=== PATIENT | female | born 1940 | race Caucasian/White ===

== ENCOUNTER → 2017-10-01 | Outpatient (CLI) | payer MEDICARE | END | disposition home or self-care (01) | LOC: RAH 12:30 | PROVIDERS: ATTEND Internal Medicine | DX: I73.9 Peripheral vascular disease, unspecified (principal) | CPT/HCPCS: 93925 ==

== ENCOUNTER → 2018-12-01 | Outpatient (CLI) | payer MEDICARE | END | disposition home or self-care (01) | LOC: RAH 11:27 | PROVIDERS: ATTEND Internal Medicine | DX: M25.551 Pain in right hip (principal) | CPT/HCPCS: 73502 ==

== ENCOUNTER 2019-01-11 05:30 | Day surgery (SDC) | payer MEDICARE ==
[2019-01-07 10:25] VITALS: BP 143/74
[2019-01-07 10:31] LABS: BASOPHILS % (AUTO) 0.9 % (0.0-5.0); EOSINOPHILS % (AUTO) 1.9 % (0.0-8.0); HEMATOCRIT 41.9 % (36-48); LYMPHOCYTES % (AUTO) 27.8 % (21.0-51.0); MEAN CORPUSCULAR HEMOGLOBIN 28.3 pg (27.0-33.0); MEAN CORPUSCULAR HGB CONC 33.5 g/dL (32.0-36.0); MEAN CORPUSCULAR VOLUME 84.5 fL (79-99); MONOCYTES % (AUTO) 7.5 % (3.0-13.0); NEUTROPHILS % (AUTO) 61.9 % (40.0-77.0); NUCLEATED RED BLOOD CELLS 0.1 % (0.0-0.19); PLATELET COUNT (AUTO) 233 K/uL (130-400); RED BLOOD CELL COUNT(AUTO) 4.96 MIL/uL (4.00-5.50); RED CELL DISTRIBUTION WIDTH 15.3 % (11.0-15.5); WHITE BLOOD COUNT (AUTO) 7.3 K/uL (4.8-10.8)
[2019-01-07 10:36] LABS: CREATININE 0.9 mg/dL (0.5-1.5)
[~2019-01-11] VITALS: Ht 163.8 cm; Wt 112.1 kg
[2019-01-11] VITALS (10 sets, daily range): BP systolic 105–133; BP diastolic 52–69
[~2019-01-11 05:30] MED LIST: ASCO500C18 PO; CEFAZOLIN SODIUM 1 GM VIAL IVP SCH; CHOL100040 PO; FAMO40TA7 PO; FOLIC ACID PO; FURO40TA5 PO; LOSA100T58 PO; NAPR220C15 PO; POTA-79 PO; SIMV40TA5 PO; TRAM50TA4 PO; VITAMIN B12 PO
[2019-01-11] MEDS ORDERED: SODIUM CHLORIDE 0.9% 1000ML 1,000 ML IV ONE (06:40)
[2019-01-11] MEDS ORDERED: SODIUM BICARB [NEONATAL] 4.2% 10ML SYG ONE (06:53)
[2019-01-11] MEDS ORDERED: LIDOCAINE HCL 1% 20 ML VIAL ONE (06:53)
[2019-01-11] MEDS ORDERED: DEXAMETHASONE SOD PHOSPHATE 10MG/ML 1ML VIAL ONE (06:58)
[2019-01-11] MEDS ORDERED: PROPOFOL 10 MG/ML 20ML VIAL IV ONE (06:58)
[2019-01-11] MEDS ORDERED: ONDANSETRON HCL 4 MG/2 ML VIAL ONE (06:58)
[2019-01-11] MEDS ORDERED: LIDOCAINE PF 2% 5ML ABBOJECT ONE (06:58)
[2019-01-11] MEDS ORDERED: MIDAZOLAM HCL 1 MG/ML 2ML VIAL ONE (06:58)
[2019-01-11] MEDS ORDERED: FENTANYL CITRATE PF 50 MCG/1 ML 2ML VIAL ONE (06:59)
[2019-01-11] MEDS ORDERED: IOPAMIDOL 10 ML VIAL ONE (07:33)
== END 2019-01-11 09:29 | disposition home or self-care (01) ==
LOC: DAH 05:30
PROVIDERS: ATTEND Neurological Surgery
DX: M53.3 Sacrococcygeal disorders, not elsewhere classified (principal); E11.9 Type 2 diabetes mellitus without complications; I10 Essential (primary) hypertension; Z79.899 Other long term (current) drug therapy; Z91.041 Radiographic dye allergy status; Z91.048 Other nonmedicinal substance allergy status; Z98.890 Other specified postprocedural states
CPT/HCPCS: 36415; 72202; 80048; 82948 ×2; 85025; 93005; A4215; G0260; J0690 ×2; J1030; J1100; J2001; J2250; J2405; J2704; J3010; J3490; J7030 ×2; Q9966

== ENCOUNTER 2019-02-01 05:56 | Day surgery (SDC) | payer MEDICARE ==
[2019-01-31 09:05] LABS: BASOPHILS % (AUTO) 1.3 % (0.0-5.0); EOSINOPHILS % (AUTO) 2.3 % (0.0-8.0); HEMATOCRIT 43.5 % (36-48); LYMPHOCYTES % (AUTO) 25.5 % (21.0-51.0); MEAN CORPUSCULAR HEMOGLOBIN 28.3 pg (27.0-33.0); MEAN CORPUSCULAR HGB CONC 33.3 g/dL (32.0-36.0); MONOCYTES % (AUTO) 7.6 % (3.0-13.0); NEUTROPHILS % (AUTO) 63.3 % (40.0-77.0); NUCLEATED RED BLOOD CELLS 0.1 % (0.0-0.19); PLATELET COUNT (AUTO) 218 K/uL (130-400); RED BLOOD CELL COUNT(AUTO) 5.12 MIL/uL (4.00-5.50); RED CELL DISTRIBUTION WIDTH 15.3 % (11.0-15.5); WHITE BLOOD COUNT (AUTO) 7.8 K/uL (4.8-10.8)
[2019-01-31 09:10] VITALS: BP 131/70
[2019-01-31 09:31] LABS: CREATININE 0.9 mg/dL (0.5-1.5); POTASSIUM 4.4 mmol/L (3.5-5.1)
[2019-02-01] VITALS (11 sets, daily range): BP systolic 105–136; BP diastolic 61–86
[~2019-02-01] VITALS: Ht 165.1 cm; Wt 110.1 kg
[~2019-02-01 05:56] MED LIST changes: -CEFAZOLIN SODIUM 1 GM VIAL IVP SCH
[2019-02-01] MEDS ORDERED: SODIUM CHLORIDE 0.9% 1000ML 1,000 ML IV ONE (06:42)
[2019-02-01] MEDS ORDERED: CEFAZOLIN SODIUM 1 GM VIAL ONE (06:43)
[2019-02-01] MEDS ORDERED: SODIUM BICARB [NEONATAL] 4.2% 10ML SYG ONE (06:50)
[2019-02-01] MEDS ORDERED: LIDOCAINE HCL 1% 20 ML VIAL ONE (06:50)
[2019-02-01] MEDS ORDERED: LIDOCAINE PF 2% 5ML ABBOJECT ONE (06:57)
[2019-02-01] MEDS ORDERED: PROPOFOL 10 MG/ML 20ML VIAL IV ONE (06:58)
[2019-02-01] MEDS ORDERED: MIDAZOLAM HCL 1 MG/ML 2ML VIAL ONE (06:58)
[2019-02-01] MEDS ORDERED: ONDANSETRON HCL 4 MG/2 ML VIAL ONE (06:58)
[2019-02-01] MEDS ORDERED: DEXAMETHASONE SOD PHOSPHATE 10MG/ML 1ML VIAL ONE (06:58)
[2019-02-01] MEDS ORDERED: FENTANYL CITRATE PF 50 MCG/1 ML 2ML VIAL ONE (06:59)
[2019-02-01] MEDS: CEFAZOLIN SODIUM 1 GM VIAL IVP ONE ×2 (07:07→07:35)
[2019-02-01] MEDS ORDERED: A20IH1 IH (07:12)
== END 2019-02-01 09:30 | disposition home or self-care (01) ==
LOC: DAH 05:56
PROVIDERS: ATTEND Neurological Surgery
DX: M53.3 Sacrococcygeal disorders, not elsewhere classified (principal); M47.816 Spondylosis without myelopathy or radiculopathy, lumbar region; E11.9 Type 2 diabetes mellitus without complications; I10 Essential (primary) hypertension; E66.9 Obesity, unspecified; Z96.698 Presence of other orthopedic joint implants; Z91.048 Other nonmedicinal substance allergy status; Z91.041 Radiographic dye allergy status
CPT/HCPCS: 36415; 64493; 72020; 80048; 82948 ×2; 85025; 93005; 96374; A4215 ×2; A4221; A4222; A4223; A4663; J0690; J1030; J1100; J2001; J2250; J2405; J2704; J3010; J3490; J7030

== ENCOUNTER → 2020-10-08 | Outpatient (CLI) | payer MEDICARE ==
[~2020-10-08] MED LIST changes: +A20IH1 IH; -FAMO40TA7 PO; +SIMV-46 PO; -SIMV40TA5 PO
== END | disposition home or self-care (01) ==
LOC: RAH 08:46
PROVIDERS: ATTEND Internal Medicine
DX: R55 Syncope and collapse (principal); I50.32 Chronic diastolic (congestive) heart failure; I10 Essential (primary) hypertension; H35.82 Retinal ischemia; E66.9 Obesity, unspecified; E78.5 Hyperlipidemia, unspecified; E11.9 Type 2 diabetes mellitus without complications; I77.819 Aortic ectasia, unspecified site; I49.8 Other specified cardiac arrhythmias
CPT/HCPCS: 93005; 93306; 93356; 93880

== ENCOUNTER → 2020-10-17 | Outpatient (CLI) | payer MEDICARE | END | disposition home or self-care (01) | LOC: RAH 08:30 | PROVIDERS: ATTEND Internal Medicine | DX: E04.2 Nontoxic multinodular goiter (principal) | CPT/HCPCS: 76536 ==

== ENCOUNTER → 2020-11-12 | Outpatient (CLI) | payer MEDICARE ==
[2020-11-12 11:58] LABS: INR 1.04 (0.85-1.15); PROTHROMBIN TIME 11.3 SEC (9.6-11.6)
[2020-11-12 11:59] LABS: PARTIAL THROMBOPLASTIN TIME 27.6 SEC (26.3-35.5)
== END | disposition home or self-care (01) ==
LOC: RAH 09:59
PROVIDERS: ATTEND Internal Medicine
DX: E04.2 Nontoxic multinodular goiter (principal); Z79.01 Long term (current) use of anticoagulants
CPT/HCPCS: 10005; 10006; 36415; 85610; 85730

== ENCOUNTER 2021-07-10 05:50 | Day surgery (SDC) | payer MEDICARE ==
[2021-07-08 11:37] LABS: BASOPHILS % (AUTO) 0.8 % (0.0-5.0); EOSINOPHILS % (AUTO) 1.9 % (0.0-8.0); HEMATOCRIT 43.6 % (36-48); LYMPHOCYTES % (AUTO) 27.7 % (21.0-51.0); MEAN CORPUSCULAR HEMOGLOBIN 27.1 pg (27.0-33.0); MEAN CORPUSCULAR HGB CONC 31.9 g/dL (32.0-36.0); MEAN CORPUSCULAR VOLUME 85.2 fL (79-99); MONOCYTES % (AUTO) 7.5 % (3.0-13.0); NEUTROPHILS % (AUTO) 61.8 % (40.0-77.0); PLATELET COUNT (AUTO) 248 K/uL (130-400); RED BLOOD CELL COUNT(AUTO) 5.12 MIL/uL (4.00-5.50); RED CELL DISTRIBUTION WIDTH 14.4 % (11.0-15.5); WHITE BLOOD COUNT (AUTO) 7.2 K/uL (4.8-10.8)
[2021-07-08 11:44] LABS: CREATININE 0.9 mg/dL (0.5-1.5)
[2021-07-09 09:18] VITALS: BP 142/77
[~2021-07-10] VITALS: Ht 165.1 cm; Wt 110.9 kg
[~2021-07-10 05:50] MED LIST changes: -FOLIC ACID PO; +GABA300C PO; -LOSA100T58 PO; -NAPR220C15 PO; -TRAM50TA4 PO
[2021-07-10] MEDS ORDERED: PROMETHAZINE HCL 25 MG/ML 1ML AMPULE IM SCH (06:00)
[2021-07-10] MEDS ORDERED: DEXAMETHASONE SOD PHOSPHATE 4 MG/ML 1ML VIAL IVP SCH (06:00)
[2021-07-10 06:30] VITALS: BP 168/80
[2021-07-10] MEDS ORDERED: ISOVUE-M 200 20 ML VIAL IT ONE (07:03)
== END 2021-07-10 12:20 | disposition home or self-care (01) ==
LOC: DAH 05:50
PROVIDERS: ATTEND Neurological Surgery
DX: M51.16 Intervertebral disc disorders with radiculopathy, lumbar region (principal); Z20.822 Contact with and (suspected) exposure to COVID-19; E66.9 Obesity, unspecified; I25.2 Old myocardial infarction; Z79.899 Other long term (current) drug therapy; Z90.710 Acquired absence of both cervix and uterus; Z90.49 Acquired absence of other specified parts of digestive tract; Z91.041 Radiographic dye allergy status
CPT/HCPCS: 36415; 62304; 71045; 72132; 80048; 82948; 85025; 87635; 93005 ×2; A4215; A4221; A4222; A4223 ×2; A4663; A6260; C9803; J1100; J2550; Q9966

== ENCOUNTER → 2021-11-21 | Outpatient (CLI) | payer MEDICARE | END | disposition home or self-care (01) | LOC: RAH 11:07 | PROVIDERS: ATTEND Internal Medicine | DX: E04.1 Nontoxic single thyroid nodule (principal) | CPT/HCPCS: 76536 ==

== ENCOUNTER → 2022-03-13 | Outpatient (CLI) | payer MEDICARE | END | disposition home or self-care (01) | LOC: RAH 08:40 | PROVIDERS: ATTEND Internal Medicine | DX: J44.9 Chronic obstructive pulmonary disease, unspecified (principal) | CPT/HCPCS: 71046 ==

== ENCOUNTER → 2022-05-02 | Outpatient (CLI) | payer MEDICARE | END | disposition home or self-care (01) | LOC: RAH 13:36 | PROVIDERS: ATTEND Internal Medicine | DX: M79.662 Pain in left lower leg (principal); I83.92 Asymptomatic varicose veins of left lower extremity; L03.116 Cellulitis of left lower limb | CPT/HCPCS: 93971 ==

== ENCOUNTER → 2022-09-23 | Outpatient (CLI) | payer MEDICARE ==
[~2022-09-23] MED LIST changes: -A20IH1 IH; +ALBU5SOL19 IH
== END | disposition home or self-care (01) ==
LOC: RAH 13:56
PROVIDERS: ATTEND Internal Medicine
DX: R09.89 Other specified symptoms and signs involving the circulatory and respiratory systems (principal); M25.539 Pain in unspecified wrist
CPT/HCPCS: 73090; 93925

== ENCOUNTER → 2022-10-17 | Outpatient (CLI) | payer MEDICARE ==
[~2022-10-17] MED LIST changes: +POTA-364 PO; -POTA-79 PO
== END | disposition home or self-care (01) ==
LOC: RAH 12:50
PROVIDERS: ATTEND Internal Medicine
DX: E11.9 Type 2 diabetes mellitus without complications (principal); R06.09 Other forms of dyspnea; E66.9 Obesity, unspecified; E78.5 Hyperlipidemia, unspecified; I34.0 Nonrheumatic mitral (valve) insufficiency
CPT/HCPCS: 93306

== ENCOUNTER 2023-08-31 14:41 | Emergency (ER) | payer MEDICARE ==
[~2023-08-31] VITALS: Ht 165.1 cm; Wt 113.4 kg
[2023-08-31 14:58] VITALS: BP 161/86; PULSE 85; RESP 16; O2SAT 96
[2023-08-31] MEDS: TETANUS/DIPHTHERIA TOXOID [ADULT] 0.5 ML VIAL IM ONE (16:06)
== END 2023-08-31 16:34 | disposition home or self-care (01) ==
LOC: EDH 14:41
DX: S80.811A Abrasion, right lower leg, initial encounter (principal); I10 Essential (primary) hypertension; E78.00 Pure hypercholesterolemia, unspecified; Z90.49 Acquired absence of other specified parts of digestive tract; Z90.710 Acquired absence of both cervix and uterus; Z88.5 Allergy status to narcotic agent; Z88.8 Allergy status to other drugs, medicaments and biological substances; Z98.890 Other specified postprocedural states; W18.39XA Other fall on same level, initial encounter; Y93.89 Activity, other specified; Y92.89 Other specified places as the place of occurrence of the external cause; Y99.8 Other external cause status
CPT/HCPCS: 90471; 90714

== ENCOUNTER → 2023-09-09 | Outpatient (CLI) | payer MEDICARE | END | disposition home or self-care (01) | LOC: RAH 15:20 | PROVIDERS: ATTEND Internal Medicine | DX: S80.11XD Contusion of right lower leg, subsequent encounter (principal); M17.11 Unilateral primary osteoarthritis, right knee; M79.89 Other specified soft tissue disorders; I70.201 Unspecified atherosclerosis of native arteries of extremities, right leg; W19.XXXD Unspecified fall, subsequent encounter | CPT/HCPCS: 73562; 73590 ==

== ENCOUNTER → 2023-09-28 | Outpatient (CLI) | payer MEDICARE ==
[~2023-09-28] MED LIST changes: +LIDOCAINE HCL 4% LTA SOL 4 ML VIAL TP ONE
== END | disposition home or self-care (01) ==
LOC: WHH 09:06
PROVIDERS: ATTEND Nurse Practitioner Family
DX: E11.622 Type 2 diabetes mellitus with other skin ulcer (principal); L97.812 Non-pressure chronic ulcer of other part of right lower leg with fat layer exposed; S81.801A Unspecified open wound, right lower leg, initial encounter; E11.51 Type 2 diabetes mellitus with diabetic peripheral angiopathy without gangrene; E11.42 Type 2 diabetes mellitus with diabetic polyneuropathy; E11.22 Type 2 diabetes mellitus with diabetic chronic kidney disease; I13.0 Hypertensive heart and chronic kidney disease with heart failure and stage 1 through stage 4 chronic kidney disease, or unspecified chronic kidney disease; I50.20 Unspecified systolic (congestive) heart failure; N18.2 Chronic kidney disease, stage 2 (mild); J44.9 Chronic obstructive pulmonary disease, unspecified; E66.01 Morbid (severe) obesity due to excess calories; I25.10 Atherosclerotic heart disease of native coronary artery without angina pectoris; E78.00 Pure hypercholesterolemia, unspecified; M19.90 Unspecified osteoarthritis, unspecified site; Z68.41 Body mass index [BMI] 40.0-44.9, adult; X58.XXXA Exposure to other specified factors, initial encounter; Y99.8 Other external cause status; Y93.89 Activity, other specified; Y92.89 Other specified places as the place of occurrence of the external cause
CPT/HCPCS: G0463

== ENCOUNTER 2024-07-27 13:31 | Observation (INO) | payer MEDICARE ==
[~2024-07-27] VITALS: Ht 167.6 cm; Wt 95.2 kg
[~2024-07-27 13:31] MED LIST changes: -LIDOCAINE HCL 4% LTA SOL 4 ML VIAL TP ONE
--- NOTE | 2024-07-27 13:46 | EKG ---
[facility] Test Date: 2024-07-27 Test Time: 13:41:20 Pat Name: MARIA DOLORES MANN Department: ED Room: 320 Gender: F Computer Systems Auditor: [id number] : [id number] Requested By: FARRUKH MURDOCK Order Number: [id number] Reading MD: Anastasia Villagomez Measurements Intervals [place] Rate: 93 P: 0 CA: 0 QRS: -44 QRSD: 79 T: 198 QT: 355 QTc: 443 Interpretive Statements Atrial fibrillation Left anterior fascicular block Anterior infarct, old Nonspecific T abnormalities, inferior leads Compared to ECG 07/09/2021 10:05:05 Left anterior fascicular block now present Myocardial infarct finding now present T-wave abnormality now present Electronically Signed On 07-28-2024 14:34:24 RECYCLING ASSISTANT by Anastasia Villagomez Please click the below link to view image of tracing.
--- NOTE | 2024-07-27 13:52 | ERN ---
General Chief Complaint: Weakness Stated Complaint: GBW Time Seen by MD: 13:32 Source: patient, EMS History of Present Illness Initial Comments Patient is a an 84-year-old female coming in to be evaluated for generalized body weakness. Per patient he has been having generalized body weakness for one week. PATIENT HAS BEEN HAVING DIARRHEA FOR TWO WEEKS. SHE STATES THAT THE DI ARRHEA HAS NOT SUBSIDED YET. Allergies: Coded Allergies: Iodine and Iodide Containing Produc (Unverified Allergy, Unknown, 01/07/19) acetaminophen (Unverified Allergy, Unknown, 08/31/23) adhesive tape (Unverified Allergy, Unknown, 01/07/19) bacitracin (Unverified Allergy, Unknown, 01/07/19) metolazone (Unverified Allergy, Unknown, 08/31/23) neomycin (Unverified Allergy, Unknown, 01/07/19) oxycodone (Unverified Allergy, Unknown, 08/31/23) polymyxin B (Unverified Allergy, Unknown, 01/07/19) sulindac (Unverified Allergy, Unknown, 08/31/23) Home Meds Reported Medications Gabapentin (Neurontin) 300 Mg Capsule, 300 MG PO BID, CAP 07/09/21 Albuterol Sulfate (Albuterol Sulfate) 5 Mg/1 Ml Solution, 2 PUFF IH AD PRN for WHEEZING, ML 02/01/19 [Vitamin B12] No Conflict Check, 1000 MCG PO AM 01/07/19 Ascorbic Acid (Vitamin C) 500 Mg Capsule, 500 MG PO BID, CAP 01/07/19 Cholecalciferol (Vitamin D3) (Vitamin D3) 1,000 Unit Capsule, 2 CAP PO AM, CAP 01/07/19 Simvastatin (Simvastatin) 40 Mg Tablet, 40 MG PO AM, TAB 01/07/19 Furosemide (Furosemide) 40 Mg Tablet, 40 MG PO AM, TAB 01/07/19 Potassium Chloride (Potassium Chloride) 20 Meq Tablet.er, 20 MEQ PO AM, TAB 01/07/19 Past Medical History Past Medical History: High Cholesterol, Hypertension Past Surgical History: Hysterectomy, Cholecystectomy, Other Surgical History Other: BACK, HERNIA, KNEE ROS Dictation CONSTITUTIONAL: No chills, no fever, no weakness, no diaphoresis, no malaise. HEAD/FACE: No signs of trauma. EENT: No eye pain, no blurred vision, no tearing, no double vision, no ear pain, no ear discharge, no nose pain, no nasal congestion, no throat pain, no throat swelling, no mouth pain. RESPIRATORY: No cough, no orthopnea, no SOB, no stridor, no wheezing. CARDIOVASCULAR: No chest pain, no edema, no palpitations, no syncope. GASTROINTESTINAL/ABDOMINAL: No abdominal pain, no constipation, no diarrhea, no nausea, no vomiting. GENITOURINARY: No abnormal discharge, no dysuria, no frequent urination, no hematuria. No complaints of pain in the genitals. MUSCULOSKELETAL: No back pain, no gout, no joint pain, no joint swelling, no muscle pain, no muscle stiffness, no neck pain. INTEGUMENTARY: No change in color, no change in hair/nails, no dryness, no lesion, no lumps, no rash. NEUROLOGICAL/PSYCH: No anxiety, not depressed, no emotional problem, no headache, no numbness, no pre-existing deficit, no history of seizures, no tremors, no weakness. HEMATOLOGIC/LYMPHATIC: Not anemic, no history of blood clots, no apparent bleeding, no bruising, glands not swollen. All Systems Negative, Except as Noted. Physical Exam Physical Exam Dictation VITAL SIGNS: Reviewed. GENERAL APPEARANCE: Alert, oriented x3, no acute distress, obese. HEAD AND FACE: Non-traumatic. EYES: PERRL, pink conjunctivas, eyelid no trauma, anterior chamber clear. EARS: Pinnas intact and no signs of trauma or erythema. Ear canals clear and no discharge. TMs no erythema. NOSE: No discharge, no bleeding. OROPHARYNX: Mouth normal, teeth no caries, tongue pink. Pharynx clear, no erythema. Tonsils no exudates, no abscesses noted. Mucous membrane moist. NECK: Supple, non-tender, no thyromegaly, no masses, no JVD, no bruits. BREAST: Deferred. CHEST: No tenderness, no crepitus, no paradoxical movement, no retractions. LUNGS: Clear, well-ventilated, symmetric, no rales, no wheezing, no rhonchi, no stridor, good breath sounds bilaterally. HEART: Regular rate, regular rhythm, no murmur, no gallops. VASCULAR: No peripheral edema. ABDOMEN: Soft, positive bowel sounds, nondistended, no guarding, nontender, no rebound, no masses no hepatomegaly, no splenomegaly, no Dumont's sign, no hernias. RECTAL: Deferred. GENITAL: Deferred. NEUROLOGICAL: Normal speech, gross motor function intact, gross sensory function intact. MUSCULOSKELETAL: Neck nontender, full range of motion, back nontender, full range of motion. EXTREMITIES: Nontender, full range of motion. SKIN: Color pink, dry, no turgor, no rash, no lacerations, no abrasions, no contusions. LYMPHATICS: Deferred. Results Laboratory and Microbiology Lab and Micro Result Laboratory Tests Test 07/27/24 14:18 White Blood Count 10.3 K/uL (4.8-10.8) Red Blood Count 5.11 MIL/uL (4.00-5.50) Hemoglobin 10.7 g/dL (12.0-16.0) L Hematocrit 36.8 % (36-48) Mean Corpuscular Volume 72.0 fL (79-99) L Mean Corpuscular Hemoglobin 20.9 pg (27.0-33.0) L Mean Corpuscular Hemoglobin Concent 29.1 g/dL (32.0-36.0) L Red Cell Distribution Width 17.8 % (11.0-15.5) H Platelet Count 398 K/uL (130-400) Mean Platelet Volume 8.9 fL (7.5-10.5) Immature Granulocyte % (Auto) 1.1 % (0-1) H Neutrophils (%) (Auto) 80.0 % (40.0-77.0) H Lymphocytes (%) (Auto) 10.3 % (21.0-51.0) L Monocytes (%) (Auto) 7.4 % (3.0-13.0) Eosinophils (%) (Auto) 0.4 % (0.0-8.0) Basophils (%) (Auto) 0.8 % (0.0-5.0) Neutrophils # (Auto) 8.3 K/uL (1.8-7.7) H Lymphocytes # (Auto) 1.1 K/uL (1.0-4.8) Monocytes # (Auto) 0.8 K/uL (0.1-1.0) Eosinophils # (Auto) 0.04 K/uL (0.00-0.70) Basophils # (Auto) 0.08 K/uL (0.00-0.20) Absolute Immature Granulocyte (auto 0.11 K/uL (0-1) Nucleated Red Blood Cells 0.0 % (0.0-0.19) Red Blood Cell Morphology See comments Prothrombin Time 11.6 SEC (9.6-11.6) Prothromb Time International Ratio 1.11 (0.85-1.15) Activated Partial Thromboplast Time 22.2 SEC (26.3-35.5) L Sodium Level 140 mmol/L (136-145) Potassium Level 2.7 mmol/L (3.5-5.1) *L Chloride Level 102 mmol/L (101-111) Carbon Dioxide Level 28 mmol/L (21-32) Blood Urea Nitrogen 13 mg/dL (7-18) Creatinine 0.7 mg/dL (0.5-1.0) Glomerular Filtration Rate Calc 86 mL/min (>90) Random Glucose 127 mg/dL (70-105) H Total Calcium 8.2 mg/dL (8.5-10.1) L Magnesium Level 1.40 mg/dL (1.80-2.40) L Total Creatine Kinase 19 U/L (21-232) L Troponin I High Sensitivity 21.4 ng/L (4-50) B-Type Natriuretic Peptide 79 pg/mL (0-100) Labs Reviewed?: Yes EKG/XRAY/US/CT/MRI EKG Comment 07/27/2024 time 1:41 p.m. Ventricular rate [address] wave elevation or depression MDM MDM: DIFFERENTIAL DIAGNOSIS: VIRAL GASTROENTERITIS, DIARRHEA, HYPOMAGNESEMIA, HYPOKALEMIA, RATIONALE: TESTS CONSIDERED AND ORDERED SECONDARY TO SHARED DECISION MAKING INCLUDE: LABS, ECG AND RADIOLOGY PREVIOUS OUTSIDE RECORDS REVIEWED: OLD ER VISITS. RISK OF COMPLICATION AND/OR MORBIDITY OR MORTALITY OF PATIENT MANAGEMENT: NONE MEDICATIONS-PER MEDICATION RECONCILIATION NEED FOR HOSPITALIZATION: PATIENT DOES MEET CRITERIA FOR HOSPITALIZATION. NEED FOR EMERGENCY MAJOR/MINOR SURGERY: NO THERE ARE NO SOCIAL CONCERNS WITH THIS PATIENT. PRESCRIPTION DRUG MANAGEMENT PRESCRIPTIONS WILL INCLUDE SYMPTOMATIC CARE PATIENT'S PRIOR EXTERNAL MEDICAL RECORDS FROM OTHER ER VISITS WERE REVIEWED BY ME INDICATED. PRIOR TESTING AND RESULTS FROM PREVIOUS VISITS WERE REVIEWED. PRIOR TESTS WERE TAKEN INTO ACCOUNT WITH MEDICAL DECISION MAKING AND RESOURCE UTILIZATION, INDEPENDENT HISTORIAN/HISTORIANS WERE USED TO OBTAIN COMPLETE MEDICAL HISTORY. I INDEPENDENTLY INTERPRETED THE TEST THAT WERE PERFORMED, RESULTS WERE REVIEWED BY ME AND CONSIDERED FINDINGS ON RADIOLOGY IF ORDERED. MEDICAL MANAGEMENT AND EXAMINATION INTERPRETATION DISCUSSIONS WERE HAD BY ME WITH OTHER QUALIFIED HEALTHCARE PROFESSIONALS INDICATED FOR THE PATIENT'S CARE. PATIENT IS A 83-YEAR-OLD FEMALE COMING IN TO BE EVALUATED FOR GENERALIZED BODY WEAKNESS AND DIARRHEA. PATIENT WAS FOUND TO TO HAVE LOW POTASSIUM AND MAGNESIUM WHICH WAS REPLACED WELL IV FLUIDS. DUE TO THE SYMPTOMS ONGOING AND THE SEVERITY OF THE ELECTROLYTE DISBALANCE PATIENT WILL BE ADMITTED UNDER THE CARE OF DR. SWEENEY FOR ONGOING MANAGEMENT. ED Course Orders Procedure Category Date Status Time 12 Lead Ekg Tracing- EKG 07/27/24 Complete Technical 13:33 Cbc With Differential LAB 07/27/24 Complete 13:37 Prothrombin Time With LAB 07/27/24 Complete INR 13:37 B-Type Natriuretic LAB 07/27/24 Complete Peptide 13:37 Chest 1vw RAD 07/27/24 Resulted 13:37 Magnesium LAB 07/27/24 Complete 13:37 Urinalysis Profile LAB 07/27/24 Logged 13:37 Partial LAB 07/27/24 Complete Thromboplastin Time 13:37 Basic Metabolic Panel LAB 07/27/24 Complete 13:37 Cardiac Panel LAB 07/27/24 Complete 14:18 Magnesium 2gm Premix PHA 07/27/24 Complete 50ml (Magnesium 2gm 15:30 Potassium Chloride PHA 07/27/24 Complete 10meq/100ml (Potassiu 15:30 Potassium Bicarb/Cit PHA 07/27/24 Complete Ac 25meq (K-Lyte Ta 15:30 Current Medications Medications (Trade) Dose Ordered Sig/Xin Route PRN Reason Start Time Stop Time Status Last Admin Dose Admin Magnesium Sulfate 50 ml @ 0 mls/hr PROTOCOL ONCE IV 07/27/24 15:30 07/27/24 15:31 DC Potassium Bicarbonate (K-Lyte Tablet Eff 25 Meq Tablet.eff) 25 meq ONCE ONCE PO 07/27/24 15:30 07/27/24 15:31 DC 07/27/24 15:49 Potassium Chloride 100 ml @ 100 mls/hr ONCE ONCE IV 07/27/24 15:30 07/27/24 16:29 DC 07/27/24 15:50 Vital Signs Date Time Temp Pulse Resp B/P (MAP) Pulse Ox O2 Delivery O2 Flow Rate FiO2 07/27/24 16:00 97.9 95 16 132/72 97 Room Air* 0 21 07/27/24 14:47 97.5 85 16 148/85 97 Room Air* 0 21 07/27/24 13:40 98 18 107/76 96 Critical Care Note Comments CRITICAL CARE PROCEDURE NOTE AUTHORIZED AND PERFORMED BY: ME TOTAL CRITICAL CARE TIME: APPROXIMATELY 36 MINUTES DUE TO A HIGH PROBABILITY OF CLINICALLY SIGNIFICANT, LIFE THREATENING DETERIORATION, THE PATIENT REQUIRED MY HIGHEST LEVEL OF PREPAREDNESS TO INTERVENE EMERGENTLY AND I PERSONALLY SPENT THIS CRITICAL CARE TIME DIRECTLY AND PERSONALLY MANAGING THE PATIENT. THIS CRITICAL CARE TIME INCLUDED OBTAINING A HISTORY; EXAMINING THE PATIENT; PULSE OXIMETRY; ORDERING AND REVIEW OF STUDIES; ARRANGING URGENT TREATMENT WITH DEVELOPMENT OF A MANAGEMENT PLAN; EVALUATION OF PATIENT'S RESPONSE TO TREATMENT; FREQUENT REASSESSMENT; AND, DISCUSSIONS WITH OTHER PROVIDERS. THIS CRITICAL CARE TIME WAS PERFORMED TO ASSESS AND MANAGE THE HIGH PROBABILITY OF IMMINENT, LIFE-THREATENING DETERIORATION THAT COULD RESULT IN MULTI-ORGAN FAILURE. IT WAS EXCLUSIVE OF SEPARATELY BILLABLE PROCEDURES AND TREATING OTHER PATIENTS AND TEACHING TIME. PLEASE SEE MDM SECTION AND THE REST OF THE NOTE FOR FURTHER INFORMATION ON PATIENT ASSESSMENT AND TREATMENT. DX & DISP Disposition: Inpatient Decision to Admit Time: 18:34 Departure Impression: Primary Impression: Viral gastroenteritis Additional Impressions: Diarrhea, Hypokalemia, Hypomagnesemia Condition: Stable Referrals: BRET SWEENEY MD (PCP) FARRUKH MURDOCK MD Jul 27, 2024 13:52
[2024-07-27 14:29] LABS: BASOPHILS # (AUTO) 0.08 K/uL (0.00-0.20); BASOPHILS % (AUTO) 0.8 % (0.0-5.0); EOSINOPHILS # (AUTO) 0.04 K/uL (0.00-0.70); EOSINOPHILS % (AUTO) 0.4 % (0.0-8.0); HEMATOCRIT 36.8 % (36-48); IMMATURE GRANULOCYTE ABSOLUTE 0.11 K/uL (0-1); LYMPHOCYTES # (AUTO) 1.1 K/uL (1.0-4.8); LYMPHOCYTES % (AUTO) 10.3 % (21.0-51.0); MEAN CORPUSCULAR HEMOGLOBIN 20.9 pg (27.0-33.0); MEAN CORPUSCULAR HGB CONC 29.1 g/dL (32.0-36.0); MONOCYTES # (AUTO) 0.8 K/uL (0.1-1.0); MONOCYTES % (AUTO) 7.4 % (3.0-13.0); NEUTROPHILS # (AUTO) 8.3 K/uL (1.8-7.7); PLATELET COUNT (AUTO) 398 K/uL (130-400); RED BLOOD CELL COUNT(AUTO) 5.11 MIL/uL (4.00-5.50); RED CELL DISTRIBUTION WIDTH 17.8 % (11.0-15.5); WHITE BLOOD COUNT (AUTO) 10.3 K/uL (4.8-10.8)
[2024-07-27 14:56] LABS: INR 1.11 (0.85-1.15); PROTHROMBIN TIME 11.6 SEC (9.6-11.6)
[2024-07-27 14:58] LABS: PARTIAL THROMBOPLASTIN TIME 22.2 SEC (26.3-35.5)
--- NOTE | 2024-07-27 15:03 | HMCIMG ---
PORTABLE CHEST RADIOGRAPH INDICATION: vertigo COMPARISON: 03/13/2022 FINDINGS: Heart size is normal. Mild calcific plaque is present along the aortic arch cronin. The pulmonary vascularity and yuni appear normal. Right infrahilar linear scarring and linear scarring at the left lung base. No evidence for consolidation. No significant pleural effusion noted. No pneumothorax detected. IMPRESSION: No radiographic evidence for any acute cardiopulmonary process.
[2024-07-27 15:04] LABS: CREATININE 0.7 mg/dL (0.5-1.0); MAGNESIUM 1.4 mg/dL (1.80-2.40)
[2024-07-27 15:06] LABS: POTASSIUM 2.7 mmol/L (3.5-5.1)
[2024-07-27 15:13] LABS: B-TYPE NATRIURETIC PEPTIDE 79 pg/mL (0-100)
[2024-07-27] MEDS: MAGNESIUM 2GM PREMIX 50ML 50 ML IV ONE (15:30)
[2024-07-27] MEDS: PoTASSium BIcarbonate/CIT AC 25 MEQ TABLET.EFF PO ONE (15:49)
[2024-07-27] MEDS: PoTASSium chloRIDE 10MEQ/100ML 100 ML IV ONE (15:50)
[2024-07-27] MEDS ORDERED: acetaMINOPHEN 325 MG TAB PO PRN (19:00)
[2024-07-27] MEDS ORDERED: ondanSETRON 4MG INJ IVP PRN (19:00)
[2024-07-27] MEDS ORDERED: PoTASSium chl 10% ELIXIR 20MEQ 20 MEQ/15 ML UDCUP PO PRN ×2 (19:00→23:30)
[2024-07-27] MEDS: NS-20 MEQ KCL 1000ML 1,000 ML IV SCH (21:22)
[2024-07-27] MEDS: PoTASSium chloRIDE 20MEQ/100ML 100 ML IV PRN (21:23)
[2024-07-27] MEDS: PoTASSium chloRIDE 20MEQ ER 20 MEQ ERTAB PO PRN (21:23)
--- NOTE | 2024-07-27 22:07 | HP ---
HISTORY AND PHYSICAL Date of Visit: Jul 27, 2024 Time of Visit: 22:07 ADMISSION DATE: Jul 27, 2024 at 13:32 CC: WEAKNESS HPI: THIS IS A 83 YR OLD WOMAN WITH HX HTN DM II HYPERLIPIDEMIA WHO PRESENTED WITH A 3 WEEK HISTORY OF DIARRHEA. SHE COMPLAINS OF GENERALIZED WEAKNESS. SHE DENIES ANY ABDOMINAL PAINS FEVERS CHILLS NAUSEA OR VOMITING. SHE HAS BEEN TAKING IMODIUM OTC WITH- OUT RELIEF. SHE DENIES ANY CHEST PAINS PALPITATIONS LEG SWELLING. SHE DOES HAVE A HISTORY OF CHRONIC LBP DUE TO LUMBAR STENOSIS AND HER PRIMARY POND SUPERVISOR IS HER SON. 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 S/P CHOLECYSTECTOMY S/P TOTAL HYSTERECTOMY S/P BILATERAL CATARACT SURGERY SOCIAL HISTORY: AND LIVES LOCALLY NO ALCOHOL TOBACCO OR DRUG ABUSE FAMILY HISTORY: + DM HTN CAD ^ Patient History: Carcinomas FATHER Cardiovascular disease FATHER (HEART ATTACK) BROTHER (HEART ATTACK) Diabetes mellitus FATHER Hypertension FATHER Allergies: Coded Allergies: Iodine and Iodide Containing Produc (Unverified Allergy, Unknown, 01/07/19) acetaminophen (Unverified Allergy, Unknown, 08/31/23) adhesive tape (Unverified Allergy, Unknown, 01/07/19) bacitracin (Unverified Allergy, Unknown, 01/07/19) metolazone (Unverified Allergy, Unknown, 08/31/23) neomycin (Unverified Allergy, Unknown, 01/07/19) oxycodone (Unverified Allergy, Unknown, 08/31/23) polymyxin B (Unverified Allergy, Unknown, 01/07/19) sulindac (Unverified Allergy, Unknown, 08/31/23) Scheduled Ascorbic Acid (Vitamin C), 500 MG PO BID, (Reported) Cholecalciferol (Vitamin D3) (Vitamin D3), 2 CAP PO AM, (Reported) Ferrous Sulfate (Ferrous Sulfate), 1 TAB PO DAILY Fluticasone/Umeclidin/Vilanter (Trelegy Ellipta 100-62.5-25), 1 PUFF IH DAILY Furosemide (Furosemide), 40 MG PO AM, (Reported) Metoprolol Tartrate (Metoprolol Tartrate), 1 TAB PO BID Pantoprazole Sodium (Pantoprazole Sodium), 1 TAB PO DAILY Potassium Chloride (Potassium Chloride), 20 MEQ PO AM, (Reported) Simvastatin (Simvastatin), 40 MG PO AM, (Reported) Valsartan (Valsartan), 1 TAB PO DAILY [Vitamin B12], 1,000 MCG PO AM, (Reported) Scheduled PRN Albuterol Sulfate (Albuterol Sulfate), 2 PUFF IH AD PRN for WHEEZING, (Reported) Discontinued Medications Gabapentin (Neurontin), 300 MG PO BID, (Reported) Review of Systems Normal Constitutional:, Normal Eyes:, Normal Ear/Nose/Mouth/Throat, Normal Cardiovascular:, Normal Respiratory:, Normal Gastrointestinal:, Normal Genitourinary:, Normal Integumentary:, Normal Musculoskeletal:, Normal Neurological:, Normal Psychological:, Normal Endocrine:, Normal Hematologic/Lymphatic:, Normal Allergic/Immunologic: Physical Exam Vital Signs Vital Signs Date Time Temp Pulse Resp B/P (MAP) Pulse Ox O2 Delivery O2 Flow Rate FiO2 07/27/24 13:40 98 18 107/76 96 07/27/24 14:47 97.5 Room Air* 0 21 Appearance: Obese Eyes: PERRL, EOM Normal, Normal Conjuctivae/eyelid Ear/Nose/Mouth/Throat: Landmarks WNL, Hearing WNL Cardiovascular: Regular Rate, Regular Rhythm, Normal S1, S2, No Edema Respiratory: No Retractions, No rubs/wheezing, Lungs clear G.I.: Normal bowel sounds, No pain w/ palpations, No rebound tenderness Lymphatic: No lymphadenopathy neck, No lymphadenopathy axilla, No lymphadenopathy groin Musculoskeletal: Normal ROM Skin: No rash/ulcers, No induration/nodules Neurology: Nerves I-XII intact, Sensation WNL Psychology: Insight WNL, Orientation WNL, Memory WNL, Affect WNL Diagnostics Laboratory Tests Test 07/27/24 14:18 Range/Units White Blood Count 10.3 4.8-10.8 K/uL Red Blood Count 5.11 4.00-5.50 MIL/uL Hemoglobin 10.7 12.0-16.0 g/dL Hematocrit 36.8 36-48 % Mean Corpuscular Volume 72.0 79-99 fL Mean Corpuscular Hemoglobin 20.9 27.0-33.0 pg Mean Corpuscular Hemoglobin Concent 29.1 32.0-36.0 g/dL Red Cell Distribution Width 17.8 11.0-15.5 % Platelet Count 398 130-400 K/uL Mean Platelet Volume 8.9 7.5-10.5 fL Immature Granulocyte % (Auto) 1.1 0-1 % Neutrophils (%) (Auto) 80.0 40.0-77.0 % Lymphocytes (%) (Auto) 10.3 21.0-51.0 % Monocytes (%) (Auto) 7.4 3.0-13.0 % Eosinophils (%) (Auto) 0.4 0.0-8.0 % Basophils (%) (Auto) 0.8 0.0-5.0 % Neutrophils # (Auto) 8.3 1.8-7.7 K/uL Lymphocytes # (Auto) 1.1 1.0-4.8 K/uL Monocytes # (Auto) 0.8 0.1-1.0 K/uL Eosinophils # (Auto) 0.04 0.00-0.70 K/uL Basophils # (Auto) 0.08 0.00-0.20 K/uL Absolute Immature Granulocyte (auto 0.11 0-1 K/uL Nucleated Red Blood Cells 0.0 0.0-0.19 % Red Blood Cell Morphology See comments Prothrombin Time 11.6 9.6-11.6 SEC Prothromb Time International Ratio 1.11 0.85-1.15 Activated Partial Thromboplast Time 22.2 26.3-35.5 SEC Sodium Level 140 136-145 mmol/L Potassium Level 2.7 3.5-5.1 mmol/L Chloride Level 102 101-111 mmol/L Carbon Dioxide Level 28 21-32 mmol/L Blood Urea Nitrogen 13 7-18 mg/dL Creatinine 0.7 0.5-1.0 mg/dL Glomerular Filtration Rate Calc 86 >90 mL/min Random Glucose 127 70-105 mg/dL Total Calcium 8.2 8.5-10.1 mg/dL Magnesium Level 1.40 1.80-2.40 mg/dL Total Creatine Kinase 19 21-232 U/L Troponin I High Sensitivity 21.4 4-50 ng/L B-Type Natriuretic Peptide 79 0-100 pg/mL Assessment/Plan Assessment/Plan ASSESSMENT: THIS IS A 83 YR OLD WOMAN WITH HISTORY OF OBESITY / BMI 34 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 CMP EF 50% HYPERTENSIVE HEART AND RENAL DIS CKD 2 - CHRONIC DIASTOLIC CHF LUMBAR STENOSIS L-3-4-5 DISC SURGERY WITH DYNESYS STABILIZATION SYSTEM 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 - OTHER SPECIFIED SPONDYLOPATHIES, LUMBAR REGION OTHER SPECIFIED SPONDYLOPATHY, LUMBAR REGION 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
[2024-07-27] MEDS ORDERED: PANT40TA54 PO (23:15)
[2024-07-27] MEDS ORDERED: METO25TA6 PO (23:15)
[2024-07-27] MEDS ORDERED: FERS325 PO (23:15)
[2024-07-27] MEDS ORDERED: FLUT1BLS3 IH (23:15)
[2024-07-27] MEDS ORDERED: VALS320T16 PO (23:15)
[2024-07-27] MEDS ORDERED: PoTASSium chloRIDE 20MEQ/100ML 100 ML IV PRN (23:30)
[2024-07-27] MEDS ORDERED: ALBUTEROL INHALER 90MCG/INH IH PRN (23:30)
[2024-07-27] MEDS ORDERED: PoTASSium chloRIDE 20MEQ ER 20 MEQ ERTAB PO PRN (23:30)
[2024-07-27] MEDS ORDERED: LACTULOSE 20 GM/30 ML UDCUP PO PRN (23:30)
[2024-07-27] MEDS ORDERED: MAG/ALUM/SIMETH 30 ML UDCUP PO PRN (23:30)
[2024-07-27] MEDS ORDERED: DEXTROSE 50%-WATER 50 ML DISP.SYRIN IV PRN (23:30)
[2024-07-27] MEDS ORDERED: GLUCAGON 1MG KIT 1 MG ML IM PRN (23:30)
[2024-07-28] VITALS (7 sets, daily range): BP systolic 128–143; BP diastolic 73–96; PULSE 71–87; RESP 20–27; TEMP 97.8–98.3; O2SAT 97–98
[2024-07-28] MEDS ORDERED: LoSARTan 50 MG TABLET PO PRN
[2024-07-28] MEDS: PoTASSium chloRIDE 20MEQ ER 20 MEQ ERTAB PO SCH (00:17)
[2024-07-28] MEDS: FERROUS SULFATE 325 MG TABLET.DR PO SCH (00:17)
[2024-07-28] MEDS: MAGNESIUM OXIDE 400 MG TABLET PO SCH (00:17)
[2024-07-28 01:44] LABS: MAGNESIUM 1.7 mg/dL (1.80-2.40); POTASSIUM 3.6 mmol/L (3.5-5.1)
--- NOTE | 2024-07-28 01:45 | NUR ---
PATIENT RECEIVED FROM ER. PATIENT ALERT, ORIENTED, ABLE TO MAKE NEEDS KNOWN. PATIENT ORIENTED TO CALL LIGHT AND UNIT FALL POLICY. CALL LIGHT IN REACH, ADMISSION ASSESSMENT PERFORMED.
[2024-07-28 06:28] LABS: CREATININE 0.5 mg/dL (0.5-1.0); POTASSIUM 3.3 mmol/L (3.5-5.1)
[2024-07-28] MEDS: PANTOPrazole 40 MG TAB DR PO SCH (08:54)
[2024-07-28] MEDS: ENOXAPARIN SODIUM 30 MG/0.3 ML SQ SCH (08:55)
[2024-07-28] MEDS ORDERED: FERROUS SULFATE 325 MG TABLET.DR PO SCH (09:00)
[2024-07-28] MEDS ORDERED: PoTASSium chloRIDE 20MEQ ER 20 MEQ ERTAB PO SCH (09:00)
--- NOTE | 2024-07-28 13:37 | PN ---
Subjective Review of Systems PROGRESS NOTE Date of Visit: Jul 28, 2024 Time of Visit: 13:34 Events since last encounter patient doing well - no n/v abd pain and eating well No recurrent diarrhea Subjective FEELING BETTER General: No Fever, No Chills, No Night Sweats, No Fatigue, No Malaise, No Appetite, No Other HEENT: No Head Aches, No Visual Changes, No Eye Pain, No Ear Pain, No Dysphasia, No Sinus Congestion, No Post Nasal Drip, No Sore Throat, No Other Pulmonary: No Dyspnea, No Cough, No Pleuritic Chest Pain, No Other Cardiovascular: No: Chest Pain, Palpitations, Orthopnea, Paroxysmal Noc. Dyspnea, Edema, Lt Headedness, Other Gastrointestinal: No: Nausea, Vomiting, Abdominal Pain, Diarrhea, Constipation, Melena, Hematochezia, Other Genitourinary: No Dysuria, No Frequency, No Incontinence, No Hematuria, No Retention, No Other Musculoskeletal: No: other, neck pain, shoulder pain, arm pain, back pain, hand pain, leg pain, foot pain Skin: No Urticaria, No Rash, No Other Neurological: No: Weakness, Numbness, Incoordination, Change in speech, Confusion, Seizures, Other Objective Vitals and I/O Vital Sign (Last 24 Hours) 07/28/24 07/28/24 07/28/24 01:40 03:32 11:41 Temp 97.9 Pulse 87 Resp 22 B/P (MAP) 128/77 Pulse Ox 98 O2 Delivery Room Air O2 Flow Rate 0 FiO2 21 Intake & Output (last 24hrs) 07/27/24 07/27/24 07/28/24 15:00 23:00 07:00 Intake Total 250 ml Balance 250 ml General: Alert, Oriented X3, Cooperative, No acute distress HEENT: Atraumatic, PERRLA, EOMI, Mucous membr. moist/pink Neck: Supple, No JVD, No thyromegaly Lungs: Clear to auscultation, Normal air movement Heart: Regular rate, Regular rhythm Abdomen: Normal bowel sounds, Soft, No masses Extremities: No clubbing, No cyanosis, Other (CHRONIC R LEG EDEMA) Skin: No rashes, No breakdown, No significant lesion Neuro: Normal speech, Strength at 5/5 X4 ext Psych/Mental Status: Mental status NL, Mood NL, Thoughts/Content NL Results RADIOLOGY: [] EKG: [] Laboratory Tests Test 07/27/24 14:18 07/28/24 01:31 07/28/24 05:17 07/28/24 06:14 White Blood Count 10.3 K/uL (4.8-10.8) Red Blood Count 5.11 MIL/uL (4.00-5.50) Hemoglobin 10.7 g/dL (12.0-16.0) L Hematocrit 36.8 % (36-48) Mean Corpuscular Volume 72.0 fL (79-99) L Mean Corpuscular Hemoglobin 20.9 pg (27.0-33.0) L Mean Corpuscular Hemoglobin Concent 29.1 g/dL (32.0-36.0) L Red Cell Distribution Width 17.8 % (11.0-15.5) H Platelet Count 398 K/uL (130-400) Mean Platelet Volume 8.9 fL (7.5-10.5) Immature Granulocyte % (Auto) 1.1 % (0-1) H Neutrophils (%) (Auto) 80.0 % (40.0-77.0) H Lymphocytes (%) (Auto) 10.3 % (21.0-51.0) L Monocytes (%) (Auto) 7.4 % (3.0-13.0) Eosinophils (%) (Auto) 0.4 % (0.0-8.0) Basophils (%) (Auto) 0.8 % (0.0-5.0) Neutrophils # (Auto) 8.3 K/uL (1.8-7.7) H Lymphocytes # (Auto) 1.1 K/uL (1.0-4.8) Monocytes # (Auto) 0.8 K/uL (0.1-1.0) Eosinophils # (Auto) 0.04 K/uL (0.00-0.70) Basophils # (Auto) 0.08 K/uL (0.00-0.20) Absolute Immature Granulocyte (auto 0.11 K/uL (0-1) Nucleated Red Blood Cells 0.0 % (0.0-0.19) Red Blood Cell Morphology See comments Prothrombin Time 11.6 SEC (9.6-11.6) Prothromb Time International Ratio 1.11 (0.85-1.15) Activated Partial Thromboplast Time 22.2 SEC (26.3-35.5) L Sodium Level 140 mmol/L (136-145) 140 mmol/L (136-145) Potassium Level 2.7 mmol/L (3.5-5.1) *L 3.6 mmol/L (3.5-5.1) 3.3 mmol/L (3.5-5.1) L Chloride Level 102 mmol/L (101-111) 106 mmol/L (101-111) Carbon Dioxide Level 28 mmol/L (21-32) 26 mmol/L (21-32) Blood Urea Nitrogen 13 mg/dL (7-18) 14 mg/dL (7-18) Creatinine 0.7 mg/dL (0.5-1.0) 0.5 mg/dL (0.5-1.0) Glomerular Filtration Rate Calc 86 mL/min (>90) 94 mL/min (>90) Random Glucose 127 mg/dL (70-105) H 92 mg/dL (70-105) Total Calcium 8.2 mg/dL (8.5-10.1) L 7.6 mg/dL (8.5-10.1) L Magnesium Level 1.40 mg/dL (1.80-2.40) L 1.70 mg/dL (1.80-2.40) L Total Creatine Kinase 19 U/L (21-232) L Troponin I High Sensitivity 21.4 ng/L (4-50) B-Type Natriuretic Peptide 79 pg/mL (0-100) Whole Blood Glucose 93 MG/DL (70-110) Test 07/28/24 10:54 Whole Blood Glucose 163 MG/DL (70-110) #H Medications Current Medications Magnesium Sulfate 50 ml @ 0 mls/hr PROTOCOL ONCE IV Last administered on 07/27/24at 15:30; Start 07/27/24 at 15:30; Stop 07/27/24 at 15:31; Status DC Potassium Chloride 100 ml @ 100 mls/hr ONCE ONCE IV Last administered on 07/27/24at 15:50; Start 07/27/24 at 15:30; Stop 07/27/24 at 16:29; Status DC Potassium Bicarbonate 25 meq ONCE ONCE PO Last administered on 07/27/24at 15:49; Start 07/27/24 at 15:30; Stop 07/27/24 at 15:31; Status DC Potassium Chloride/Sodium Chloride 1,000 ml @ 125 mls/hr Q8H IV Last administered on 07/28/24at 02:16; Start 07/27/24 at 19:00; Stop 08/26/24 at 18:59 Ondansetron HCl 4 mg Q6H PRN IVP; Start 07/27/24 at 19:00; Stop 08/26/24 at 18:59 Acetaminophen 650 mg Q6H PRN PO; Start 07/27/24 at 19:00; Stop 07/27/24 at 19:13; Status DC Potassium Chloride 100 ml @ 100 mls/hr AD PRN IV Last administered on 07/27/24at 21:23; Start 07/27/24 at 19:00; Stop 08/26/24 at 18:59 Potassium Chloride 20 meq AD PRN PO; Start 07/27/24 at 19:00; Stop 08/26/24 at 18:59 Potassium Chloride 20 meq AD PRN PO Last administered on 07/27/24at 21:23; Start 07/27/24 at 19:00; Stop 08/26/24 at 18:59 Pantoprazole Sodium 40 mg DAILY PO Last administered on 07/28/24at 08:54; Start 07/28/24 at 09:00; Stop 08/27/24 at 08:59 Albuterol Sulfate AD PRN IH; Start 07/27/24 at 23:30; Stop 08/26/24 at 23:29 Ferrous Sulfate 325 mg DAILY PO; Start 07/28/24 at 09:00; Stop 07/27/24 at 23:42; Status DC Potassium Chloride 20 meq DAILY PO; Start 07/28/24 at 09:00; Stop 07/27/24 at 23:42; Status DC Al Hydroxide/Mg Hydroxide 30 ml Q6H PRN PO; Start 07/27/24 at 23:30; Stop 08/26/24 at 23:29 Lactulose 20 gm BID PRN PO; Start 07/27/24 at 23:30; Stop 08/26/24 at 23:29 Enoxaparin Sodium 30 mg DAILY SQ Last administered on 07/28/24at 08:55; Start 07/28/24 at 09:00; Stop 08/27/24 at 08:59 Dextrose 50 ml AD PRN IV; Start 07/27/24 at 23:30; Stop 08/26/24 at 23:29 Glucagon 1 mg AD PRN IM; Start 07/27/24 at 23:30; Stop 08/26/24 at 23:29 Potassium Chloride 100 ml @ 100 mls/hr AD PRN IV; Start 07/27/24 at 23:30; Stop 07/27/24 at 23:27; Status DC Potassium Chloride 20 meq AD PRN PO; Start 07/27/24 at 23:30; Stop 07/27/24 at 23:27; Status DC Potassium Chloride 20 meq AD PRN PO; Start 07/27/24 at 23:30; Stop 07/27/24 at 23:27; Status DC Ferrous Sulfate 325 mg DAILY PO Last administered on 07/28/24at 08:55; Start 07/28/24 at 00:30; Stop 08/27/24 at 00:29 Potassium Chloride 20 meq TID PO Last administered on 07/28/24at 08:54; Start 07/28/24 at 00:30; Stop 08/27/24 at 00:29 Magnesium Oxide 200 mg BID PO Last administered on 07/28/24at 08:55; Start 07/28/24 at 00:30; Stop 08/27/24 at 00:29 Losartan Potassium 50 mg BID PRN PO; Start 07/28/24 at 00:00; Stop 08/27/24 at 00:00 Assessment/Plan ASSESSMENT: THIS IS A 83 YR OLD WOMAN WITH HISTORY OF OBESITY / BMI 34 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 CMP EF 50% HYPERTENSIVE HEART AND RENAL DIS CKD 2 - CHRONIC DIASTOLIC CHF LUMBAR STENOSIS L-3-4-5 DISC SURGERY WITH [employer] STABILIZATION SYSTEM 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 - OTHER SPECIFIED SPONDYLOPATHIES, LUMBAR REGION OTHER SPECIFIED SPONDYLOPATHY, LUMBAR REGION 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
--- NOTE | 2024-07-28 17:18 | NUR ---
SPOKE WITH EMS REGARDING TRANSPORT FOR PATIENT. PENDING ARRIVAL OF EMS TO DIRECTOR OF ANCILLARY SERVICES PATIENT.
--- NOTE | 2024-07-28 19:05 | NUR ---
DISCHARGE EMS ARRIVED TO SIGNAL MECHANIC PATIENT PERIPHERAL IV DISCONTINUED DISCHARGE EDUCATION, INSTRUCTIONS, AND MEDICATION LIST PROVIDED TO PATIENT FACE SHEET, HEALTH AND PHYSICAL, AND EMS TRANSFER FORM PROVIDED TO EMS PATIENT AWARE OF FOLLOW UP APPOINTMENT WITH DR. SWEENEY 07/29/24 AT 1 P.M. VIA TELEPHONE ALL QUESTIONS ANSWERED AT THIS TIME.
--- NOTE | 2024-07-29 09:16 | DS ---
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 Mild calcific plaque is present along the aortic arch cronin. The pulmonary vascularity and yuni appear normal. Right infrahilar linear scarring and linear scarring at the left lung base. No evidence for consolidation. No significant pleural effusion noted. No pneumothorax detected. IMPRESSION: No radiographic evidence for any acute cardiopulmonary process. HOSPITAL COURSE: THIS IS AN 83 YR OLD WOMAN WITH THE ABOVE PMH WHO PRESENTED WITH AN ACUTE DIARRHEAL ILLNESS WITH SUSPECTED COLITIS ASSOCIATED WITH DEHYDRATION AND HYPOKALEMIA. SHE WAS HYDRATED AND WAS SUPPLEMENTED ON HER POTASSIUM. HER LASIX AND HER VALSARTAN WERE HELD UNTIL FURTHER NOTICE. SHE WAS NO LONGER HAVING DIARRHEA THE FOLLOWING DAY AND WAS DISCHARGED HOME INTO THE CARE OF HER SON WITH HOME HEALTH AND PROVIDER SERVICES UNDER [facility]. HER PROVIDER SERVICES WERE ALREADY IN PLACE PRIOR TO ADMISSION AND ADDITIONAL HOURS WERE REQUESTED UPON RELEASE. DIET: HEART HEALTHY ACTIVITY: UP IN CHAIR TOLERATED CONDITION: STABLE EQUIPMENT: NONE FOLLOW UP APPOINTMENT(S): DR UPTON 2-5 DAYS DISPOSITION: HOME WITH HOME HEALTH AND PROVIDER SERVICES CODE STATUS: FULL MEDICATION RECONCILIATION : Home Medications were reconciled with hospital medications upon discharge and discussed with patient and/or responsible democrat. HOLD LASIX AND VALSARTAN UNTIL FURTHER NOTICE CONTINUE POTASSIUM ^ Home Meds Active Scripts Pantoprazole Sodium (Pantoprazole Sodium) 40 Mg Tablet., 1 TAB PO DAILY for 30 Days, #30 TAB 0 Refills Prov:BRET UPTON MD 07/27/24 Fluticasone/Umeclidin/Vilanter (Trelegy Ellipta 100-62.5-25) 100-62.5 Blst.w.dev, 1 PUFF IH DAILY for 30 Days, #1 EACH 0 Refills Prov:BRET UPTON MD 07/27/24 Metoprolol Tartrate (Metoprolol Tartrate) 25 Mg Tablet, 1 TAB PO BID for 30 Da ys, #60 TAB 0 Refills Prov:BRET UPTON MD 07/27/24 Ferrous Sulfate (Ferrous Sulfate) 325 Mg (65 Mg Iron) Ectab, 1 TAB PO DAILY for 30 Days, #60 TAB 0 Refills Prov:BRET UPTON MD 07/27/24 Reported Medications Albuterol Sulfate (Albuterol Sulfate) 5 Mg/1 Ml Solution, 2 PUFF IH AD PRN for WHEEZING, ML 02/01/19 [Vitamin B12] No Conflict Check, 1000 MCG PO AM 01/07/19 Ascorbic Acid (Vitamin C) 500 Mg Capsule, 500 MG PO BID, CAP 01/07/19 Cholecalciferol (Vitamin D3) (Vitamin D3) 1,000 Unit Capsule, 2 CAP PO AM, CAP 01/07/19 Simvastatin (Simvastatin) 40 Mg Tablet, 40 MG PO AM, TAB 01/07/19 Potassium Chloride (Potassium Chloride) 20 Meq Tablet.er, 20 MEQ PO AM, TAB 01/07/19 Discontinued Reported Medications Furosemide (Furosemide) 40 Mg Tablet, 40 MG PO AM, TAB 01/07/19 Gabapentin (Neurontin) 300 Mg Capsule, 300 MG PO BID, CAP 07/09/21 Discontinued Scripts Valsartan (Valsartan) 320 Mg Tablet, 1 TAB PO DAILY for 30 Days, #30 TAB 0 Refills Prov:BRET UPTON MD 07/27/24 BRET UPTON MD Jul 29, 2024 09:16
== END 2024-07-28 19:27 | disposition home or self-care (01) ==
LOC: EDH 13:31 → EDHIP 13:32 → 3CH 07-28 00:47
PROVIDERS: ADMIT Internal Medicine; ATTEND Internal Medicine
DX: A08.4 Viral intestinal infection, unspecified (principal); E87.6 Hypokalemia; E86.0 Dehydration; E78.00 Pure hypercholesterolemia, unspecified; I25.10 Atherosclerotic heart disease of native coronary artery without angina pectoris; I13.0 Hypertensive heart and chronic kidney disease with heart failure and stage 1 through stage 4 chronic kidney disease, or unspecified chronic kidney disease; E11.22 Type 2 diabetes mellitus with diabetic chronic kidney disease; N18.2 Chronic kidney disease, stage 2 (mild); I50.32 Chronic diastolic (congestive) heart failure; J45.909 Unspecified asthma, uncomplicated; M48.8X6 Other specified spondylopathies, lumbar region; I77.810 Thoracic aortic ectasia; E75.6 Lipid storage disorder, unspecified; E11.42 Type 2 diabetes mellitus with diabetic polyneuropathy; E83.42 Hypomagnesemia; E66.9 Obesity, unspecified; M19.90 Unspecified osteoarthritis, unspecified site; Z68.34 Body mass index [BMI] 34.0-34.9, adult; Z98.890 Other specified postprocedural states; Z79.899 Other long term (current) drug therapy
CPT/HCPCS: 96365; 96366 ×3; 96368; 82550; 83735 ×2; 84484; 80048 ×2; 83880; 85025; 85610; 85730; 36415 ×2; 71045; 99291; 93005; 84132; 96372; 82948 ×3; G0378 ×20; J3475; J3480 ×3; J1650